=== PATIENT | male | born 1995 | race Caucasian/White ===

== ENCOUNTER 2020-03-21 21:19 | Observation (INO) | payer OTHER ==
--- NOTE | 2020-03-21 21:35 | EDM.PDOC ---
ED HPI GENERAL MEDICAL PROBLEM - General Time Seen by Provider: 03/21/20 21:26 Source of Information: Reports: Family - History of Present Illness INITIAL COMMENTS - FREE TEXT/NARRATIVE: Gonzalo is a 24 y/o male who is brought to the ER by police after they were called to his home by his fiance vance. He had apparently drank a large bottle of vodka and then threatened to want to kill himself. He tells the REAL ESTATE RECRUITER that "He did in fact say he wanted to jump [place] the [place], but now he no longer wants to." Prior to that though he told the RN and police that he did want to jump off the bridge. He has not had any psychiatric admissions in the past. - Related Data Allergies Allergy/AdvReac Type Severity Reaction Status Date / Time No Known Allergies Allergy Verified 03/21/20 21:42 Home Meds: Home Meds Fish Oil/[place]-3 Fatty Acids [Fish Oil 1,000 MG] 1 cap PO DAILY 03/21/20 [History] Multivitamin 1 each PO DAILY 03/21/20 [History] Review of Systems - Review of Systems Review Of Systems: Unable To Obtain Reason Not Obtained: Unable to obtain due to ETOH ED EXAM, GENERAL - Physical Exam Exam: See Below Exam Limited By: Other (Alcohol Intoxication) General Appearance: Alert, WD/WN, No Apparent Distress Ears: Hearing Grossly Normal Nose: Normal Inspection, Normal Mucosa Throat/Mouth: Normal Inspection, Normal Teeth, Normal Voice Head: Atraumatic, Normocephalic Neck: Normal Inspection Respiratory/Chest: No Respiratory Distress Cardiovascular: Regular Rate, Rhythm GI/Abdominal: Soft, Non-Tender (Male) Exam: Deferred Rectal (Males) Exam: Deferred Back Exam: Normal Inspection Extremities: Normal Inspection Neurological: Alert Psychiatric: Other (Intoxicated) Skin Exam: Warm, Dry, Intact, Normal Color Course - Vital Signs Text/Narrative:: The patient was seen by the REAL ESTATE RECRUITER. Labs ordered. Patient became nauseated and was given Zofran 4 mg IVP and a liter of NS. [id number], will admit patient to Observation until he is sober then will have him visit with Behavioral Health in the AM after labs. UA/UDS remains pending. See Observation orders. Last Recorded V/S: Last Vital Signs Temp 36.4 C 03/21/20 22:25 Pulse 78 03/21/20 22:25 Resp 24 H 03/21/20 22:25 BP 110/53 L 03/21/20 22:25 Pulse Ox 93 L 03/21/20 22:25 - Orders/Labs/Meds Orders: Active Orders 24 hr Category Date Time Status SALICYLATE [REF] Stat Lab 03/21/20 22:04 Received UA RFX FATIMAH AND CULT IF INDIC [URIN] Stat Lab 03/21/20 21:28 Ordered URINE DRUG SCREEN,POC [POC] Stat Lab 03/21/20 21:28 Ordered Ondansetron [Zofran] Med 03/21/20 22:21 Active 4 mg IVPUSH Q8H PRN Sodium Chloride 0.9% [Normal Saline] 1,000 ml Med 03/21/20 22:15 Active IV ASDIRECTED Medication Orders Acetaminophen (Tylenol) 650 mg PO Q4H PRN PRN Reason: Pain (Mild 1-3)/fever Sodium Chloride (Normal Saline) 1,000 mls @ 999 mls/hr IV ASDIRECTED JEANINE Last Admin: 03/21/20 22:19 Dose: 999 mls/hr Documented by: KIT Ondansetron HCl (Zofran) 4 mg IVPUSH Q8H PRN PRN Reason: Nausea Last Admin: 03/21/20 22:13 Dose: 4 mg Documented by: KIT Ondansetron HCl (Zofran Odt) 4 mg PO Q4H PRN PRN Reason: nausea, able to take PO Promethazine HCl (Phenergan) 25 mg PO Q6H PRN PRN Reason: nausea, able to take PO Labs: Laboratory Tests 03/21/20 03/21/20 03/21/20 Range/Units 22:04 22:04 22:30 WBC 9.1 (4.0-10.0) x10^3/uL RBC 5.40 (4.5-6.0) x10^6/uL Hgb 14.7 (14.0-18.0) g/dL Hct 42.7 (40.0-52.0) % MCV 79.1 (78.0-93.0) fL MCH 27.2 (26.0-32.0) pg MCHC 34.4 (32.0-36.0) g/dL RDW Coeff of Annita 12.9 (10.0-15.0) % Plt Count 231 (130-400) x10^3/uL Neut % (Auto) 55.9 (50.0-80.0) % Lymph % (Auto) 36.6 (25.0-50.0) % [place] % (Auto) 6.1 (2.0-11.0) % Eos % (Auto) 1.1 (0.0-4.0) % Baso % (Auto) 0.3 (0.2-1.2) % Sodium 143 (136-145) mmol/L Potassium 3.5 (3.5-5.1) mmol/L Chloride 105 (98-107) mmol/L Carbon Dioxide 24 (21-32) mmol/L Anion Gap 17.5 (10-20) mmol/L BUN 21 H (7-18) mg/dL Creatinine 1.2 (0.70-1.30) mg/dL Est Cr Clr Drug Dosing 102.84 mL/min Estimated GFR (MDRD) > 60 Glucose 110 H (74-106) mg/dL Calcium 8.6 (8.5-10.1) mg/dL Corrected Calcium 8.04 L (8.5-10.1) mg/dL Total Bilirubin 0.3 (0.2-1.0) mg/dL AST 28 (15-37) U/L ALT 31 (16-63) U/L Alkaline Phosphatase 111 (46-116) U/L Total Protein 8.0 (6.4-8.2) g/dL Albumin 4.7 (3.4-5.0) g/dL Globulin 3.3 Albumin/Globulin Ratio 1.42 Acetaminophen 0 L (10-30) ug/ml Ethyl Alcohol 297 H (0-3) mg/dL COVID-19 (RIOS) Negative (NEGATIVE) Meds: Medications Generic Name Dose Route Start Last Admin Trade Name Freq PRN Reason Stop Dose Admin Acetaminophen 650 mg 03/21/20 22:47 Tylenol PO Q4H PRN Pain (Mild 1-3)/fever Sodium Chloride 1,000 mls @ 999 mls/hr 03/21/20 22:15 03/21/20 22:19 Normal Saline IV 999 mls/hr ASDIRECTED JEANINE Administration Ondansetron HCl 4 mg 03/21/20 22:21 03/21/20 22:13 Zofran IVPUSH 4 mg Q8H PRN Administration Nausea Ondansetron HCl 4 mg 03/21/20 22:47 Zofran Odt PO Q4H PRN nausea, able to take PO Promethazine HCl 25 mg 03/21/20 22:47 Phenergan PO Q6H PRN nausea, able to take PO Discontinued Medications Generic Name Dose Route Start Last Admin Trade Name Freq PRN Reason Stop Dose Admin Ondansetron HCl 4 mg 03/21/20 22:05 03/21/20 22:20 Zofran IM 03/21/20 22:06 Not Given ONETIME ONE Ondansetron HCl 4 mg 03/21/20 22:20 03/21/20 22:21 Zofran IM 03/21/20 22:21 Not Given ONETIME ONE Departure - Departure Time of Disposition: 22:41 Disposition: Refer to Observation Clinical Impression: Alcohol intoxication, Suicidal ideation - Discharge Information *PRESCRIPTION DRUG MONITORING PROGRAM REVIEWED*: Not Applicable *COPY OF PRESCRIPTION DRUG MONITORING REPORT IN PATIENT DOROTHY: Not Applicable Sepsis Event Note (ED) - Focused Exam Vital Signs: Vital Signs Temp Pulse Resp BP Pulse Ox 03/21/20 22:25 36.4 C 78 24 H 110/53 L 93 L 03/21/20 21:21 36.9 C 95 18 145/92 H 93 L - My Orders Last 24 Hours: My Active Orders 03/21/20 21:28 UA RFX FATIMAH AND CULT IF INDIC [URIN] Stat URINE DRUG SCREEN,POC [POC] Stat 03/21/20 22:04 SALICYLATE [REF] Stat 03/21/20 22:15 Sodium Chloride 0.9% [Normal Saline] 1,000 ml IV ASDIRECTED 03/21/20 22:21 Ondansetron [Zofran] 4 mg IVPUSH Q8H PRN - Assessment/Plan Last 24 Hours: My Active Orders 03/21/20 21:28 UA RFX FATIMAH AND CULT IF INDIC [URIN] Stat URINE DRUG SCREEN,POC [POC] Stat 03/21/20 22:04 SALICYLATE [REF] Stat 03/21/20 22:15 Sodium Chloride 0.9% [Normal Saline] 1,000 ml IV ASDIRECTED 03/21/20 22:21 Ondansetron [Zofran] 4 mg IVPUSH Q8H PRN
[2020-03-21] MEDS ORDERED: Ondansetron 4 MG/2 ML SDV IM ONE ×2 (22:05→22:20)
[2020-03-21] MEDS ORDERED: Sodium Chloride 0.9% 1,000 ML IV SCH (22:15)
[2020-03-21] MEDS ORDERED: Ondansetron 4 MG/2 ML SDV IVPUSH PRN (22:21)
[2020-03-21 22:30] LABS: CHLORIDE,CL 105 mmol/L (98-107); SODIUM,NA 143 mmol/L (136-145)
[2020-03-21 22:32] LABS: ANION GAP 17.5 mmol/L (10-20)
[2020-03-21 22:42] LABS: ACETAMINOPHEN 0 ug/ml (10-30)
[2020-03-21] MEDS ORDERED: Ondansetron 4 MG Tab.DIS PO PRN (22:47)
[2020-03-21] MEDS ORDERED: Acetaminophen 325 MG Tab PO PRN (22:47)
[2020-03-21] MEDS ORDERED: Promethazine 25 MG Tab PO PRN (22:47)
[2020-03-22 06:56] LABS: BUPRENORPHINE,URINE NEGATIVE (NEGATIVE); MARIJUANA,URINE NEGATIVE (NEGATIVE); METHYLENEDIOXYMETHAMP,UR NEGATIVE (NEGATIVE); PHENCYCLIDINE,URINE NEGATIVE (NEGATIVE)
[2020-03-22] MEDS: Lactated Ringers 1,000 ML IV SCH ×2 (09:41→13:40)
--- NOTE | 2020-03-22 12:38 | PCM.DCSUM1 ---
Discharge Summary - Hospital Course HPI Initial Comments: Gonzalo is a 24 y/o male who is brought to the ER by police after they were called to his home by his fiance vance. He had apparently drank a large bottle of vodka and then threatened to want to kill himself. 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 He has not had any psychiatric admissions in the past. HPI from [facility]. RAY from the ED. Diagnosis: Stroke: No - Discharge Data Discharge Date: 03/22/20 Discharge Disposition: Home, Self-Care 01 Condition: Good - Referral to Home Health Primary Care Physician: Cruz Carrasco NP - Discharge Diagnosis/Problem(s) (1) Alcohol intoxication SNOMED Code(s): 39436253 ICD Code: F10.929 - ALCOHOL USE, UNSPECIFIED WITH INTOXICATION, UNSPECIFIED Status: Acute Current Visit: Yes (2) Suicidal ideation SNOMED Code(s): 3854766 ICD Code: R45.851 - SUICIDAL IDEATIONS Status: Acute Current Visit: Yes - Patient Summary/Data Consults: Consultations 03/21/20 22:47 Consult to Case Management/Wheel Loader Operator [CONS] Routine Hospital Course: The patient was admitted under the hospital under observation for concerns of acute alcohol intoxication as well as suicidal statements. This patient was allowed to sober up during the night. His initial alcohol was almost 300. The next morning he was still in the 130s. He is alert and appropriate. He spoke at length with the rn social services Yohana and he could not contract for safety with her he still has concerns of harming himself. He does admit that he does not drink very often but when he does he drinks in large quantities. When I visit with him he is somewhat short and not very open. He rather smuggle he responds that he will not harm himself or anyone else. His parents are in the room. He denies being suicidal at this time. Is going through some issues with the fianc that has been on and off again. There is no hallucinations delusions or confusion. He is never had any suicidal attempts or admissions in the past. We were able to set up some outpatient treatment for him back in [place] which is where he is going to go with his parents at this time they are willing to keep him safe and observe him and sure that he follows up with outpatient services. The patient did talk with the screener from 1 of the inpatient treatment facilities in [place]. The screener Omkar did give the option for admission on the patient's willingness although he refuses. Yohana also spoke with multiple other entities to try to get some outpatient services set up the parents were reluctant to this as she works in that field and she will take care of it themselves. Again the patient contracts for safety at this time. He denies being suicidal to myself and his family. We will discharge him home with his parents and their care. The patient and the parents are comfortable with this plan and their questions are answered Greater than 30 minutes of time was spent not only with the patient his parents and the rn social services determining best placement for this patient. - Patient Instructions Other/Special Instructions: Home with parents to [facility]. Contract for safety. Which at any time your become suicidal or feel like harming yourself or anyone else that you will notify your parents and or call 911. Yohana the rn social services attempted to help with outpatient follow up but you have chosen to find resources on your own. Let us know if you need help. Recheck with PCP next week. NO ALCOHOL at all. Lots of fluids over the next few days especially gatorade and or powerade. Eat regular meals. Good luck with school. Recheck if any concerns of self harm. - Discharge Plan *PRESCRIPTION DRUG MONITORING PROGRAM REVIEWED*: Not Applicable *COPY OF PRESCRIPTION DRUG MONITORING REPORT IN PATIENT DOROTHY: Not Applicable Home Medications: Home Meds Fish Oil/[place]-3 Fatty Acids [Fish Oil 1,000 MG] 1 cap PO DAILY 03/21/20 [History] Multivitamin 1 each PO DAILY 03/21/20 [History] Forms: ED Department Discharge Referrals: Cruz Carrasco NP [Primary Care Provider] - - Discharge Summary/Plan Comment DC Time >30 min.: Yes - General Info Date of Service: 03/21/20 Admission Dx/Problem (Free Text: Alcohol intoxication Suicidal ideation and statements. Subjective Update: He slept well during the night. He is completely without complaints today. He tells me that he is not suicidal and he does contract for safety with myself although these are neal contrast with what was reported to me from the rn social services. He has poor eye contact he was short and somewhat smug with his discussion. Functional Status: Reports: Pain Controlled - Review of Systems General: Reports: No Symptoms, Night Sweats Pulmonary: Reports: No Symptoms Cardiovascular: Reports: No Symptoms Gastrointestinal: Reports: No Symptoms Genitourinary: Reports: No Symptoms Musculoskeletal: Reports: No Symptoms Skin: Reports: No Symptoms Neurological: Reports: No Symptoms Psychiatric: Reports: No Symptoms - Patient Data Vitals - Most Recent: Last Vital Signs Temp 97.2 F 03/22/20 10:00 Pulse 81 03/22/20 10:00 Resp 17 03/22/20 10:00 BP 121/68 03/22/20 10:00 Pulse Ox 98 03/22/20 10:00 Weight - Most Recent: 230 lb I&O - Last 24 hours: Intake & Output 03/21/20 03/22/20 03/22/20 22:59 06:59 14:59 Intake Total 0 120 Output Total 800 650 Balance -800 -650 120 Lab Results - Last 24 hrs: Laboratory Results - last 24 hr 03/21/20 03/21/20 03/21/20 Range/Units 22:04 22:04 22:30 WBC 9.1 (4.0-10.0) x10^3/uL RBC 5.40 (4.5-6.0) x10^6/uL Hgb 14.7 (14.0-18.0) g/dL Hct 42.7 (40.0-52.0) % MCV 79.1 (78.0-93.0) fL MCH 27.2 (26.0-32.0) pg MCHC 34.4 (32.0-36.0) g/dL RDW Coeff of Annita 12.9 (10.0-15.0) % Plt Count 231 (130-400) x10^3/uL Neut % (Auto) 55.9 (50.0-80.0) % Lymph % (Auto) 36.6 (25.0-50.0) % [place] % (Auto) 6.1 (2.0-11.0) % Eos % (Auto) 1.1 (0.0-4.0) % Baso % (Auto) 0.3 (0.2-1.2) % Sodium 143 (136-145) mmol/L Potassium 3.5 (3.5-5.1) mmol/L Chloride 105 (98-107) mmol/L Carbon Dioxide 24 (21-32) mmol/L Anion Gap 17.5 (10-20) mmol/L BUN 21 H (7-18) mg/dL Creatinine 1.2 (0.70-1.30) mg/dL Est Cr Clr Drug Dosing 102.84 mL/min Estimated GFR (MDRD) > 60 Glucose 110 H (74-106) mg/dL Calcium 8.6 (8.5-10.1) mg/dL Corrected Calcium 8.04 L (8.5-10.1) mg/dL Total Bilirubin 0.3 (0.2-1.0) mg/dL AST 28 (15-37) U/L ALT 31 (16-63) U/L Alkaline Phosphatase 111 (46-116) U/L Total Protein 8.0 (6.4-8.2) g/dL Albumin 4.7 (3.4-5.0) g/dL Globulin 3.3 Albumin/Globulin Ratio 1.42 Urine Color (YELLOW) Urine Appearance (CLEAR) Urine pH (5.0-8.0) Ur Specific [place] Urine Protein (NEGATIVE) mg/dL Urine Glucose (UA) (NEGATIVE) mg/dL Urine Ketones (NEGATIVE) mg/dL Urine Occult Blood (NEGATIVE) Urine Nitrite (NEGATIVE) Urine Bilirubin (NEGATIVE) Urine Urobilinogen (0.2) EU/dL Ur Leukocyte Esterase (NEGATIVE) Urine Opiates Screen (NEGATIVE) Ur Buprenorphine Scrn (NEGATIVE) Ur Oxycodone Screen (NEGATIVE) Ur EDDP (Meth Metab) (NEGATIVE) Urine Methadone Screen (NEGATIVE) Acetaminophen 0 L (10-30) ug/ml Ur Barbituates Screen (NEGATIVE) Ur Tricyclics Screen (NEGATIVE) Ur Phencyclidine Scrn (NEGATIVE) Ur Amphetamines Screen (NEGATIVE) U Methamphetamines Scrn (NEGATIVE) Urine MDMA Screen (NEGATIVE) U Benzodiazepines Scrn (NEGATIVE) Urine Cocaine Screen (NEGATIVE) U Marijuana (THC) Screen (NEGATIVE) Ethyl Alcohol 297 H (0-3) mg/dL COVID-19 (RIOS) Negative (NEGATIVE) 08/26/20 08/26/20 08/26/20 Range/Units 01:01 01:01 09:10 WBC (4.0-10.0) x10^3/uL RBC (4.5-6.0) x10^6/uL Hgb (14.0-18.0) g/dL Hct (40.0-52.0) % MCV (78.0-93.0) fL MCH (26.0-32.0) pg MCHC (32.0-36.0) g/dL RDW Coeff of Annita (10.0-15.0) % Plt Count (130-400) x10^3/uL Neut % (Auto) (50.0-80.0) % Lymph % (Auto) (25.0-50.0) % [place] % (Auto) (2.0-11.0) % Eos % (Auto) (0.0-4.0) % Baso % (Auto) (0.2-1.2) % Sodium (136-145) mmol/L Potassium (3.5-5.1) mmol/L Chloride (98-107) mmol/L Carbon Dioxide (21-32) mmol/L Anion Gap (10-20) mmol/L BUN (7-18) mg/dL Creatinine (0.70-1.30) mg/dL Est Cr Clr Drug Dosing mL/min Estimated GFR (MDRD) Glucose (74-106) mg/dL Calcium (8.5-10.1) mg/dL Corrected Calcium (8.5-10.1) mg/dL Total Bilirubin (0.2-1.0) mg/dL AST (15-37) U/L ALT (16-63) U/L Alkaline Phosphatase (46-116) U/L Total Protein (6.4-8.2) g/dL Albumin (3.4-5.0) g/dL Globulin Albumin/Globulin Ratio Urine Color Yellow (YELLOW) Urine Appearance Clear (CLEAR) Urine pH 5.5 (5.0-8.0) Ur Specific [place] 1.015 Urine Protein Negative (NEGATIVE) mg/dL Urine Glucose (UA) Negative (NEGATIVE) mg/dL Urine Ketones Negative (NEGATIVE) mg/dL Urine Occult Blood Negative (NEGATIVE) Urine Nitrite Negative (NEGATIVE) Urine Bilirubin Negative (NEGATIVE) Urine Urobilinogen 0.2 (0.2) EU/dL Ur Leukocyte Esterase Negative (NEGATIVE) Urine Opiates Screen Negative (NEGATIVE) Ur Buprenorphine Scrn Negative (NEGATIVE) Ur Oxycodone Screen Negative (NEGATIVE) Ur EDDP (Meth Metab) Negative (NEGATIVE) Urine Methadone Screen Negative (NEGATIVE) Acetaminophen (10-30) ug/ml Ur Barbituates Screen Negative (NEGATIVE) Ur Tricyclics Screen Negative (NEGATIVE) Ur Phencyclidine Scrn Negative (NEGATIVE) Ur Amphetamines Screen Negative (NEGATIVE) U Methamphetamines Scrn Negative (NEGATIVE) Urine MDMA Screen Negative (NEGATIVE) U Benzodiazepines Scrn Negative (NEGATIVE) Urine Cocaine Screen Negative (NEGATIVE) U Marijuana (THC) Screen Negative (NEGATIVE) Ethyl Alcohol 134 H (0-3) mg/dL COVID-19 (RIOS) (NEGATIVE) Med Orders - Current: Current Medications Acetaminophen (Tylenol) 650 mg PO Q4H PRN PRN Reason: Pain (Mild 1-3)/fever Sodium Chloride (Normal Saline) 1,000 mls @ 999 mls/hr IV ASDIRECTED [facility] Last Admin: 03/21/20 22:19 Dose: 999 mls/hr Documented by: Lactated Ringer's (Ringers, Lactated) 1,000 mls @ 250 mls/hr IV ASDIRECTED [facility] Last Admin: 03/22/20 09:41 Dose: 250 mls/hr Documented by: Ondansetron HCl (Zofran) 4 mg IVPUSH Q8H PRN PRN Reason: Nausea Last Admin: 03/21/20 22:13 Dose: 4 mg Documented by: Ondansetron HCl (Zofran Odt) 4 mg PO Q4H PRN PRN Reason: nausea, able to take PO Promethazine HCl (Phenergan) 25 mg PO Q6H PRN PRN Reason: nausea, able to take PO Discontinued Medications Ondansetron HCl (Zofran) 4 mg IM ONETIME ONE Stop: 03/21/20 22:06 Last Admin: 03/21/20 22:20 Dose: Not Given Documented by: Ondansetron HCl (Zofran) 4 mg IM ONETIME ONE Stop: 03/21/20 22:21 Last Admin: 03/21/20 22:21 Dose: Not Given Documented by: - Exam General: Reports: Alert, Oriented HEENT: Reports: Pupils Equal Neck: Reports: Supple Lungs: Reports: Clear to Auscultation, Normal Respiratory Effort Cardiovascular: Reports: Regular Rate, Regular Rhythm GI/Abdominal Exam: Normal Bowel Sounds, Soft, Non-Tender (Male) Exam: Deferred Rectal (Males) Exam: Deferred Back Exam: Reports: Normal Inspection, Full Range of Motion Extremities: Normal Inspection, Normal Range of Motion, Normal Capillary Refill Skin: Reports: Warm, Dry, Intact Psy/Mental Status: Reports: Agitated (Patient is minimally agitated. He has poor eye contact. He speaks very loud and choppy short sentences. He has little to no eye contact. He is constantly wringing his hands and looking about the room. He is somewhat argumentative at times about even the most mundane topics.). Denies: Suicidal Ideation, Homicidal Ideation, Hallucinations, Withdrawal Symptoms
[2020-03-23] MEDS ORDERED: Multivitamins with Iron/Calcium/Folic Acid/Minerals Tab PO SCH (08:00)
[2020-03-23] MEDS ORDERED: Fish Oil/Omega-3 Fatty Acids 1 Gm Cap PO SCH (08:00)
== END 2020-03-22 15:55 | disposition home or self-care (01) ==
LOC: VM.ED 21:19 → VM.MS 22:40
PROVIDERS: ADMIT Nurse Practitioner Family; ATTEND Nurse Practitioner Family
DX: F10.129 Alcohol abuse with intoxication, unspecified (principal); R45.851 Suicidal ideations; Z79.899 Other long term (current) drug therapy; Z20.828 Contact with and (suspected) exposure to other viral communicable diseases; Y90.0 Blood alcohol level of less than 20 mg/100 ml
CPT/HCPCS: 36415; 80053; 80305-QW; 80307; 81003; 85025; 96361; 96374; 99217; 99220; 99285-25; G0378; J2405; J7030; J7120; U0002